=== PATIENT | male | born 1955 | race Two or more races ===

== ENCOUNTER 2018-09-24 08:17 | Emergency (ER) | payer SELFPAY ==
[~2018-09-24] VITALS: Ht 172.7 cm; Wt 113.4 kg
[2018-09-24 08:20] VITALS: BP 134/77
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
[2018-09-24] MEDS ORDERED: Ketorolac 60mg Inj IM ONE (09:15)
[2018-09-24] MEDS ORDERED: Acetaminophen 500mg (ES) tab ORAL ONE (09:15)
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
--- NOTE | 2018-09-24 10:10 | Diagnostic Imaging Report ---
Indication: Trauma, pain Technique: 3 views of the right shoulder Comparison: none Findings: No acute fractures. No dislocations. Joint spaces are preserved. Impression: Negative
[2018-09-24 10:20] VITALS: BP 155/80
[2018-09-24] MEDS ORDERED: CYCLOBENZAPRINE10 MG ORAL (11:53)
[2018-09-24] MEDS ORDERED: TRAMADOL HCL50 MG ORAL (11:53)
[2018-09-24] MEDS ORDERED: ACETAMINOPHEN500 M3 ORAL (11:53)
[2018-09-24] MEDS ORDERED: IBUPROFEN800 MG ORAL (11:53)
[2018-09-24 12:24] VITALS: BP 155/80
--- NOTE | 2018-09-24 12:25 | NUR ---
ER DISCHARGE NOTE: Patient is cleared to be discharged per ERMD, pt is aox4, on room air, with stable vital signs. pt was given dc and prescription instructions, and sling was applied on Rt arm. pt was able to verbalize understanding, pt id band removed. pt is able to ambulate with steady gait. pt took all belongings.
== END 2018-09-24 12:27 | disposition home or self-care (01) ==
LOC: EDBD 08:17 → EMR 09:05
DX: S46.001A Unspecified injury of muscle(s) and tendon(s) of the rotator cuff of right shoulder, initial encounter (principal); S16.1XXA Strain of muscle, fascia and tendon at neck level, initial encounter; V53.5XXA Driver of pick-up truck or van injured in collision with car, pick-up truck or van in traffic accident, initial encounter; Y92.411 Interstate highway as the place of occurrence of the external cause
CPT/HCPCS: 96372; 99283